=== PATIENT | male | born 1965 | race Caucasian/White ===

== ENCOUNTER 2017-01-22 06:33 | Day surgery (SDC) | payer MEDICAID ==
[2017-01-22] MEDS ORDERED: MEPERIDINE HCL/PF 100 MG/ML AMP ONE (07:13)
[2017-01-22] MEDS ORDERED: SIMETHICONE 40 MG/0.6 ML ML ONE (07:13)
[2017-01-22] MEDS: MIDAZOLAM HCL 5 MG/5 ML VIAL ONE ×4 (08:35→08:59)
[2017-01-22 15:42] VITALS: BP_SYST 110
== END 2017-01-22 10:00 | disposition home or self-care (01) ==
LOC: SGI 06:33
PROVIDERS: ATTEND Internal Medicine Gastroenterology
DX: Z12.11 Encounter for screening for malignant neoplasm of colon (principal); K29.70 Gastritis, unspecified, without bleeding; K57.30 Diverticulosis of large intestine without perforation or abscess without bleeding; K64.8 Other hemorrhoids; R10.13 Epigastric pain; K44.9 Diaphragmatic hernia without obstruction or gangrene; Z68.34 Body mass index [BMI] 34.0-34.9, adult; F17.200 Nicotine dependence, unspecified, uncomplicated
CPT/HCPCS: 43239; 45378; 88305; 88312; 88313; J2175; J2250